=== PATIENT | female | born 1995 | race Caucasian/White ===

== ENCOUNTER 2016-10-14 13:28 | Emergency (ER) | payer MEDICAID ==
[2016-10-14 13:37] VITALS: BP 137/87
[2016-10-14 13:53] LABS: Urine Bilirubin Negative (NEGATIVE); Urine Blood Negative /ul (NEGATIVE); Urine Ketone 15 mg/dL (NEGATIVE); Urine Nitrite Negative (NEGATIVE); Urine Protein Negative (NEGATIVE); Urine Specific Gravity >=1.030 SP.GR. (1.005-1.010); Urine Urobilinogen Normal (NORMAL)
[2016-10-14 13:54] LABS: Hemoglobin 14.6 gm/dL (12.5-16.0); Mean Cell Volume 82.7 fl (78-100); Mean Corpuscular Hemoglobin 28.1 pg (27-31); Mean Platelet Volume 10.3 fl (6.0-9.5); Neutrophil # 6.5 K/mm3 (1.3-6.0); Neutrophil % 66.3 % (42-75.0); Platelet Count 305 K/mm3 (150-450); Red Cell Distribution Width 12.3 % (11.5-14.0); White Blood Count 9.7 K/mm3 (4.0-10.5)
[2016-10-14 14:00] LABS: Urine Appearance Clear; Urine Color Yellow
[2016-10-14 14:02] LABS: Urine Bacteria 2+; Urine RBC 0-5 /hpf (0-5); Urine WBC 0-5 /hpf (0-5)
[2016-10-14 14:09] LABS: Albumin * 4.7 gm/dl (3.4-5.0); Anion Gap 15.4 mmol/L (6.8-13.8); BUN/Creatinine Ratio 15.7 (9.0-21.6); Bilirubin, Total 0.6 mg/dL (0.0-1.1); Ca. Corrected For Albumin 8.7 mg/dL (8.4-10.2); Calcium * 9.6 mg/dL (7.9-10.9); Carbon Dioxide 25.4 mmol/L (24-32.6); Potassium 3.8 mmol/L (3.4-4.6); Total Protein 8.4 gm/dL (6.2-8.2)
--- NOTE | 2016-10-14 14:17 | ERNOTE ---
Abdominal HPI - General Chief Complaint: Abdominal Pain Time Seen by Provider: 10/14/16 13:47 Source: patient - Immun/Allergies/Home Medications Immunizatons: IMMUNIZATION HX Immunizations Up to Date Yes History of Influenza Vaccine No Hx Pneumococcal Vaccination No Allergies/Adverse Reactions: Allergies clindamycin HCl [From Cleocin] Allergy (Severe, Verified 10/14/16 13:37) Hives clindamycin palmitate HCl [From Cleocin] Allergy (Severe, Verified 10/14/16 13: 37) Hives clindamycin phosphate [From Cleocin] Allergy (Severe, Verified 10/14/16 13:37) Hives Home Medications: HOME MEDICATIONS Naproxen [Naprosyn] 500 mg PO BID PRN 7 Days 10/14/16 [Last Taken Unknown] - History of Present Illness Narrative: here for left adnexal pain which is intermittent NOT NOW. She has no pain right now. no nausea vomiting or diarrhea. She has not had a bowel movement today, denies any fevers or chills Review of Systems - Review of Systems Constitutional: Present: no symptoms reported EYE: Present: no symptoms reported ENT: Present: no symptoms reported Respiratory: Present: no symptoms reported Cardiology: Present: no symptoms reported Gastrointestinal/Abdominal: Present: See HPI - Patient's Past Medical History Patient History - Medical: No pertinent hx Patient History - Cardiac/Respiratory: No pertinent hx Patient History - Cancer: No Hx of Cancer Patient History - Surgical Procedures: No surgical history Patient History - Other: None LMP (females 10-50): other - Social History Living Situations: home Psych History: No pertinent hx - Immunizations Immunizations Up to Date: Yes Hx Pneumococcal Vaccination: No History of Influenza Vaccine: No Physical Exam - Physical Exam General Appearance: Present: wd/wn, alert, no apparent distress Eye Exam: Normal inspection: bilateral, PERRL: bilateral, EOMI: bilateral Ears, Nose, Throat: Present: normal ENT inspection, normal pharynx Neck: Present: normal inspection, nontender, supple, full range of motion Respiratory: Present: no respiratory distress, normal breath sounds, no accessory muscle use, chest nontender, lungs clear Cardiovascular/Chest: Present: regular rate, rhythm, no murmur, normal peripheral pulses Gastrointestinal/Abdominal: Present: normal bowel sounds, nondistended, soft, no organomegaly, other - pt has some discomfort when I palpate the area around her left adnexa/ ovary ED Progress - Results and Orders Patient's Lab Results:: I have reviewed the patient's lab results. - Vital Signs Patient's Vital Signs:: I have reviewed the patient's vital signs. Vital Signs: Vital Signs 10/14/16 13:33 Temperature 36.8 C Pulse Rate 98 Respiratory 16 Rate Blood Pressure 137/87 O2 Sat by Pulse 100 Oximetry - X-Ray X-Ray #1 X-Ray: abdomen - Progress/Reassessment Chief Complaint: Abdominal Pain Plan - Plan Plan: I believe this patient may have ovulation pain based on the history. Will treat and have pt follow up with PCP Departure - Departure Clinical Impression: Chery Disposition: Home self-care Condition: Good Instructions: Abdominal Pain, Pediatric Referrals: Violetta Mcgee MD [Primary Care Provider] - Prescriptions: Naproxen [Naprosyn] 500 mg PO BID PRN 7 Days PRN Reason: Pain
== END 2016-10-14 14:22 | disposition home or self-care (01) ==
LOC: ER 13:28
DX: N94.0 Mittelschmerz (principal)

== ENCOUNTER 2016-11-08 21:54 | Emergency (ER) | payer MEDICAID ==
[2016-11-09] MEDS ORDERED: ONDANSETRON HCL/PF 2 MG/ML VIAL ONE (00:08)
[2016-11-09] MEDS ORDERED: ONDANSETRON HCL/PF 2 MG/ML VIAL IV ONE (00:19)
[2016-11-09] MEDS ORDERED: NORMAL SALINE 1,000 ML IV ONE (00:20)
[2016-11-09 00:37] LABS: Hematocrit 46.4 % (37.0-47.0); Hemoglobin 15.8 gm/dL (12.5-16.0); Mean Cell Volume 82.7 fl (78-100); Mean Corpuscular Hemoglobin 28.2 pg (27-31); Mean Corpuscular Hgb Conc 34.1 g/dl (32-36); Mean Platelet Volume 10.4 fl (6.0-9.5); Neutrophil # 12.8 K/mm3 (1.3-6.0); Neutrophil % 82.3 % (42-75.0); Platelet Count 352 K/mm3 (150-450); Red Blood Count 5.61 M/mm3 (4.2-5.4); Red Cell Distribution Width 12.3 % (11.5-14.0); White Blood Count 15.5 K/mm3 (4.0-10.5)
[2016-11-09 00:48] LABS: Urine Bilirubin 1 mg/dl (NEGATIVE); Urine Blood 50 /ul (NEGATIVE); Urine Ketone 5 mg/dL (NEGATIVE); Urine Nitrite Negative (NEGATIVE); Urine Protein 100 mg/dL (NEGATIVE); Urine Specific Gravity >=1.030 SP.GR. (1.005-1.010); Urine Urobilinogen Normal (NORMAL)
[2016-11-09 00:53] LABS: Urine Appearance Clear; Urine Bacteria None Seen; Urine Color Dark Yellow; Urine RBC None Seen /hpf (0-5); Urine WBC None Seen /hpf (0-5)
[2016-11-09 01:16] LABS: Albumin * 4.9 gm/dl (3.4-5.0); BUN/Creatinine Ratio 17.6 (9.0-21.6); Bilirubin, Total 0.4 mg/dL (0.0-1.1); Ca. Corrected For Albumin 8.8 mg/dL (8.4-10.2); Calcium * 9.8 mg/dL (7.9-10.9); Potassium 3.7 mmol/L (3.4-4.6); Total Protein 8.6 gm/dL (6.2-8.2)
[2016-11-09 01:23] LABS: Anion Gap 18.4 mmol/L (6.8-13.8); Carbon Dioxide 21.3 mmol/L (24-32.6)
[2016-11-09 02:35] VITALS: BP 121/77
[2016-11-09] MEDS ORDERED: ONDANSETRON 4 MG TAB.RAPDIS PO ONE (02:57)
--- NOTE | 2016-11-09 02:57 | ERNOTE ---
Medical Problem HPI - Narrative Date of Service: 11/09/16 - General Chief Complaint: Nausea/Vomiting Time Seen by Provider: 11/09/16 02:47 - Immun/Allergies/Home Medications Immunizations: IMMUNIZATION HX Immunizations Up to Date Yes History of Influenza Vaccine Yes Hx Pneumococcal Vaccination No Allergies/Adverse Reactions: Allergies clindamycin HCl [From Cleocin] Allergy (Severe, Verified 10/14/16 13:37) Hives clindamycin palmitate HCl [From Cleocin] Allergy (Severe, Verified 10/14/16 13: 37) Hives clindamycin phosphate [From Cleocin] Allergy (Severe, Verified 10/14/16 13:37) Hives Home Medications: HOME MEDICATIONS Medroxyprogesterone Acetate [Depo-Provera] 400 mg IM Q90D 11/08/16 [Last Taken Unknown] Ondansetron [Zofran Odt] 4 mg PO Q6H PRN #7 tab 11/09/16 [Last Taken Unknown] - History of Present History Narrative: N & V X 6 AND D X 8 STARTING ABOUT 2100. NO FEVER. NO KNOWN CONTACT BUT SHE WORKS AT [employer] SINCE VOMITING SHE HAS SORENESS IN HER THROAT BUT NO BLOOD IN VOMITUS. HER ONLY MED IS DEPO-PROVERA. Review of Systems - Review of Systems Constitutional: Present: See HPI Gastrointestinal/Abdominal: Present: nausea, vomiting, diarrhea All Other Systems: All systems neg except as marked - Patient's Past Medical History Patient History - Medical: GERD Patient History - Cardiac/Respiratory: No pertinent hx Patient History - Cancer: No Hx of Cancer Patient History - Surgical Procedures: No surgical history Patient History - Other: None - Social History Living Situations: home Abuse History: No History of abuse Psych History: No pertinent hx Smoking Status: Never smoker Alcohol Use: none Drug Use: none - Immunizations Immunizations Up to Date: Yes Hx Pneumococcal Vaccination: No History of Influenza Vaccine: Yes Physical Exam - Physical Exam General Appearance: Present: wd/wn, alert, no apparent distress Ears, Nose, Throat: Present: dry mucous membranes Respiratory: Present: no respiratory distress, normal breath sounds, no accessory muscle use, chest nontender, lungs clear Cardiovascular/Chest: Present: regular rate, rhythm, no murmur, normal peripheral pulses Gastrointestinal/Abdominal: Present: normal bowel sounds, nontender, nondistended, soft, no organomegaly Back Exam: Present: normal inspection, normal range of motion, no CVA tenderness Neurological Exam: Present: alert, oriented Skin Exam: Present: normal color ED Progress - Vital Signs Vital Signs: Vital Signs 11/08/16 11/08/16 11/09/16 22:09 22:43 00:24 Temperature 36.8 C Pulse Rate 98 98 108 H Respiratory 16 18 18 Rate Blood Pressure 153/97 154/97 129/68 O2 Sat by Pulse 100 99 97 Oximetry 11/09/16 02:34 Temperature Pulse Rate Respiratory 83 H Rate Blood Pressure 121/77 O2 Sat by Pulse 98 Oximetry - Progress/Reassessment Chief Complaint: Nausea/Vomiting Departure - Departure Clinical Impression: Gastroenteritis Disposition: Home self-care Condition: Good Instructions: Viral Gastroenteritis, Adult, [id number] Referrals: Violetta Mcgee MD [Primary Care Provider] - Prescriptions: Ondansetron [Zofran Odt] 4 mg PO Q6H PRN #7 tab PRN Reason: Vomiting
[2016-11-09] MEDS ORDERED: ONDANSETRON 4 MG TAB.RAPDIS ONE (02:58)
== END 2016-11-09 03:10 | disposition home or self-care (01) ==
LOC: ER 21:54
DX: K52.9 Noninfective gastroenteritis and colitis, unspecified (principal)